=== PATIENT | male | born 1955 | race Caucasian/White ===

== ENCOUNTER → 2018-09-29 | Outpatient (REF) | payer SELFPAY | LOC: M SFHCPLAZ 17:10 | PROVIDERS: ATTEND Dermatology | DX: C44.509 Unspecified malignant neoplasm of skin of other part of trunk (principal); D23.5 Other benign neoplasm of skin of trunk ==

== ENCOUNTER → 2018-11-14 | Outpatient (REF) | payer BC | LOC: M SFHCPLAZ 09:47 | PROVIDERS: ATTEND Dermatology | DX: C44.519 Basal cell carcinoma of skin of other part of trunk (principal) ==